=== PATIENT | female | born 1965 | race Caucasian/White ===

== ENCOUNTER 2019-08-21 07:30 | Outpatient (CLI) | payer BC, SELFPAY ==
--- NOTE | ~2019-08-21 | MM_ITS ---
EXAMINATION: MM scrn corrie implant BI w katharine HISTORY: Screening mammogram TECHNIQUE: Craniocaudal and mediolateral oblique 3-D tomosynthesis images with implant displacement a nd synthetic 2-D images were generated. Craniocaudal and mediolateral oblique views of the breasts wi thout implant displacement were obtained using full field digital mammography. CAD analysis was submi tted and interpreted. COMPARISON: 07/05/2018, 07/01/2017, 06/29/2016 BREAST PARENCHYMAL COMPOSITION: There are scattered areas of fibroglandular density. FINDINGS: There is no evidence of suspicious mass, calcification, or architectural distortion to sugg est malignancy in either breast. There has been no suspicious interval change. IMPRESSION: 1. No mammographic evidence of malignancy. 2. Recommend routine screening mammography in one year. BI-RADS Category 1: Negative Reviewed, dictated and finalized at location A. 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
== END 2019-08-21 07:31 | disposition home or self-care (01) ==
LOC: ANHIMG 07:33
PROVIDERS: PCP Internal Medicine; Visit Provider Internal Medicine
DX: Z12.31 Encounter for screening mammogram for malignant neoplasm of breast (principal)
CPT/HCPCS: 77063; 77067

== ENCOUNTER 2020-01-13 04:35 | Outpatient (CLI) | payer BC, SELFPAY ==
[2020-01-13 18:08] LABS: SARS-CoV-2 RNA PCR Negative
== END 2020-01-13 04:36 | disposition home or self-care (01) ==
LOC: ANHCOVIDDT 04:35
PROVIDERS: PCP Internal Medicine; Visit Provider Internal Medicine Gastroenterology
DX: Z01.812 Encounter for preprocedural laboratory examination (principal); Z11.59 Encounter for screening for other viral diseases
CPT/HCPCS: 87635; C9803; U0003

== ENCOUNTER 2020-01-16 01:13 | Day surgery (SDC) | payer BC, SELFPAY ==
[2020-01-10 12:43] VITALS: BMI 25.9
--- NOTE | 2020-01-16 08:41 | WPDANESEPPF ---
Anes - Initial Pre Proc Eval Procedure: Operation Date: 01/16/20 10:00 Proposed Procedures p Esophagogastroduodenoscopy - Phong Moseley MD Date/Time: 01/16/20 08:41 Surgeon: Phong Moseley MD Pre Op Diagnosis: Dysphagia Patient Data Age: 54 Gender: F Height: 5 ft 6 in Weight: 73 kg Allergies Allergy/AdvReac Type Severity Reaction Status Date / Time codeine Allergy Unknown Itching Verified 01/16/20 08:33 Home Medications Medication Instructions Recorded Confirmed Type losartan 100 mg tablet 100 mg PO DAILY #30 tablet 08/07/19 01/16/20 Rx esomeprazole magnesium [Nexium] 20 mg PO DAILY 01/16/20 01/16/20 History Patient hx anesthesia problems: none Family hx anesthesia problems: none PMFSH Past Medical History Medical History History of hepatitis C Hypertension Family History Family History Sibling Family history of diabetes mellitus in first degree relative Mother Diabetes mellitus Father Hypertension Family history of malignant neoplasm Other Cerebrovascular accident Family history of cardiovascular disease Social History Social History Smoking status: Never smoker Alcohol intake: current Anes - Eval Final PreProcedure Day of Procedure 01/16/20 08:41 Patient weight: overweight Heart: regular rate and rhythm Lungs: clear to auscultation Airway: Mallampati scale class II Neurological: alert and oriented Last oral intake: >/= 8 hours ASA classification: II Emergent: no Anesthetic plan: proceed Anesthesia type and monitoring: general GIVS and standard monitoring Informed Consent: The patient's anesthetic plan and its attendant risks and benefits were discussed with the patient/family/POA. Questions were solicited and answers provided to the satisfaction of the patient/family/POA.
[2020-01-16] MEDS: LACTATED RINGERS 1,000 ML 150 ML IV CONT (08:45)
[2020-01-16 08:47] VITALS: BP 142/78; PULSE 80; RESP 18; TEMP 36.1; O2SAT 99
--- NOTE | 2020-01-16 09:11 | WPDGICN ---
Assessment and Plan Assessment and plan (1) Dysphagia: Code(s): R13.10 - Dysphagia, unspecified Status: Acute Assessment and Plan: Patient has symptoms of dysphagia. It is uncertain whether this represents a narrowing, a web or even a globus phenomenon in her throat. Plan is for EGD to assess more thoroughly. Further recommendations will be given after endoscopy. GI Consult Note Consult date/time: 01/16/20 09:11 HPI: Rae Ott is a 54 year old female seen in evaluation at the request of Dr Silva. Patient reports that when she eats meat and bread that this hangs up in the throat area. She states symptoms have occurred over the last several months. Says she often will feel something in his throat. Even when swallowing liquids. She denies any weight loss or bleeding. She currently has been on Nexium 40 mg p.o. daily for some time with no change in symptoms. Additional past history is significant for hypertension. Family history is noncontributory. Review of Systems Review of Systems: All systems reviewed & are unremarkable except as noted in HPI and below PMFSH Past Medical History Medical History History of hepatitis C Hypertension Family History Family History Sibling Family history of diabetes mellitus in first degree relative Mother Diabetes mellitus Father Hypertension Family history of malignant neoplasm Other Cerebrovascular accident Family history of cardiovascular disease Social History Social History Smoking status: Never smoker Alcohol intake: current Meds Home Medications and Allergies Home Medications Medication Instructions Recorded Confirmed Type losartan 100 mg tablet 100 mg PO DAILY #30 tablet 08/07/19 01/16/20 Rx esomeprazole magnesium [Nexium] 20 mg PO DAILY 01/16/20 01/16/20 History Allergies Allergy/AdvReac Type Severity Reaction Status Date / Time codeine Allergy Unknown Itching Verified 01/16/20 08:33 Vital Signs Vital Signs - 24 hr 01/16/20 08:47 Temperature 36.1 C L Pulse Rate 80 Respiratory Rate 18 Blood Pressure 142/78 H Pulse Oximetry 99 Exam Narrative: Exam Narrative: Physical exam reveals patient to be alert. Vital signs stable. HEENT exam unremarkable. Patient is anicteric. Lungs are clear to auscultation and percussion. Heart is without murmur or extra sounds. Abdominal exam bowel sounds are present soft nontender with no hepatosplenomegaly. Digital external rectal exam deferred at this time.
[2020-01-16] MEDS: BENZOCAINE (*SP) 60 ML SPRAY CAN (HURRICAINE) 1 SPRAY MUCOUS MEM (09:51)
[2020-01-16 10:02] VITALS: BP 118/73; PULSE 80; RESP 18; O2SAT 99
[2020-01-16 10:12] VITALS: BP 132/82; PULSE 78; RESP 18; O2SAT 100
[2020-01-16 10:22] VITALS: BP 129/67; PULSE 77; RESP 19; O2SAT 100
== END 2020-01-16 10:32 | disposition home or self-care (01) ==
PROVIDERS: PCP Internal Medicine; Visit Provider Internal Medicine Gastroenterology
PROC: 0DJ08ZZ Inspection of Upper Intestinal Tract, Via Natural or Artificial Opening Endoscopic (ICD-10-PCS; CPT 43235; principal; 2020-01-16 10:00)
DX: Q39.4 Esophageal web (principal); K21.0 Gastro-esophageal reflux disease with esophagitis; I10 Essential (primary) hypertension; Z86.19 Personal history of other infectious and parasitic diseases
CPT/HCPCS: 43450; 43235; J2704; J7120

== ENCOUNTER 2020-09-26 07:39 | Outpatient (CLI) | payer BC, SELFPAY ==
--- NOTE | ~2020-09-26 | MM_ITS ---
EXAMINATION: MM scrn corrie implant BI w katharine HISTORY: Screening mammogram TECHNIQUE: Craniocaudal and mediolateral oblique 3-D tomosynthesis images with implant displacement a nd synthetic 2-D images were generated. Craniocaudal and mediolateral oblique views of the breasts wi thout implant displacement were obtained using full field digital mammography. CAD analysis was submi tted and interpreted. COMPARISON: August 21, 2019, July 05, 2018, July 01, 2017 bilateral implant digital screenin g mammogram examinations BREAST PARENCHYMAL COMPOSITION: There are scattered areas of fibroglandular density. FINDINGS: Status post bilateral augmentation mammoplasty. There is no evidence of suspicious mass, ca lcification, or architectural distortion to suggest malignancy in either breast. There has been no oneill spicious interval change. IMPRESSION: 1. No mammographic evidence of malignancy. 2. Recommend routine screening mammography in one year. BI-RADS Category 1: Negative Reviewed, dictated and finalized at location A. 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
== END 2020-09-26 07:40 | disposition home or self-care (01) ==
LOC: ANHIMG 07:40
PROVIDERS: PCP Internal Medicine; Visit Provider Internal Medicine
DX: Z12.31 Encounter for screening mammogram for malignant neoplasm of breast (principal)
CPT/HCPCS: 77063; 77067

== ENCOUNTER 2021-10-27 08:57 | Outpatient (CLI) | payer BC, SELFPAY ==
--- NOTE | ~2021-10-27 | MM_ITS ---
EXAMINATION: MM scrn corrie implant BI w katharine HISTORY: Screening mammogram TECHNIQUE: Craniocaudal and mediolateral oblique 3-D tomosynthesis images with implant displacement a nd synthetic 2-D images were generated. Craniocaudal and mediolateral oblique views of the breasts wi thout implant displacement were obtained using full field digital mammography. CAD analysis was submi tted and interpreted. COMPARISON: 09/26/2020, 08/21/2019, 07/05/2018 bilateral implant screening mammogram examinations BREAST PARENCHYMAL COMPOSITION: The breasts are heterogeneously dense, which may obscure small masses . FINDINGS: Status post bilateral augmentation mammoplasty. There is no evidence of suspicious mass, ca lcification, or architectural distortion to suggest malignancy in either breast. There has been no oneill spicious interval change. IMPRESSION: 1. No mammographic evidence of malignancy. 2. Recommend routine screening mammography in one year. BI-RADS Category 1: Negative Reviewed, dictated and finalized at location A.
== END 2021-10-27 08:58 | disposition home or self-care (01) ==
LOC: ANHIMG 08:58
PROVIDERS: PCP Internal Medicine; Visit Provider Internal Medicine
DX: Z12.31 Encounter for screening mammogram for malignant neoplasm of breast (principal)
CPT/HCPCS: 77063; 77067

== ENCOUNTER 2022-04-14 08:55 | Outpatient (CLI) | payer BC, SELFPAY ==
--- NOTE | ~2022-04-14 | XR_ITS ---
EXAMINATION: XR barium swallow modified DATE: 04/14/2022 09:38 INDICATION: Cough, unspecified TECHNIQUE: Modified barium esophagram was performed by myself to administered fluoroscopy, in conjun ction with speech pathologist who administered barium in varying consistencies as per speech patholog ist documentation. This was recorded on tape. A single fluoroscopic spot image was recorded. The DAP for this procedure was 1.159 Gycm2. Fluoroscopy exposure time was 1.5 minutes. FINDINGS: Oral stage: Adequate function. Pharyngeal phase: Adequate function. Laryngeal penetration: None. Aspiration: None. Laryngeal sensitivity: Present. IMPRESSION: Normal modified barium swallow. Please refer to speech pathologist findings and specific feeding recommendations. Reviewed, dictated and finalized at location A.
--- NOTE | 2022-04-14 09:49 | REHSTMBS ---
Assessment and note entered by Basilia Rachel UROLOGY SURGEON Modified Barium Swallow Evaluation Feeding Type Recommended Oral Food Consistency Regular, Level 7 Liquid Consistency Thin (0) ST Clinical Summary MODIFIED BARIUM SWALLOW STUDY Patient was seen for a Modified Barium Swallow study at physician request secondary to her complaints of waking up at night choking and coughing and that occasionally when speaking she will randomly start to cough. Patient reported she does not become tickled or choked when consuming liquids or solids. Patient reports a history of GERD requiring medication, allergies, and two EGD' s in the past that have been helpful. This MBS was administered to assess this patient's risk for aspiration and to determine if any compensatory strategies may be beneficial. Results indicate this patient's swallowing skills are within normal limits. No significant findings were observed. It was recommended she continue to follow GERD guidelines. She is referred back to her physician for further assessment of her complaints.
== END 2022-04-14 08:56 | disposition home or self-care (01) ==
PROVIDERS: PCP Internal Medicine; Visit Provider Nurse Practitioner Family
DX: K21.9 Gastro-esophageal reflux disease without esophagitis (principal); R05.9 Cough, unspecified; R09.89 Other specified symptoms and signs involving the circulatory and respiratory systems
CPT/HCPCS: 92611

== ENCOUNTER 2023-05-11 09:01 | Outpatient (CLI) | payer BC, SELFPAY ==
--- NOTE | ~2023-05-11 | MM_ITS ---
EXAMINATION: MM scrn corrie implant BI w katharine HISTORY: Screening mammogram TECHNIQUE: Craniocaudal and mediolateral oblique 3-D tomosynthesis images with implant displacement a nd synthetic 2-D images were generated. Craniocaudal and mediolateral oblique views of the breasts wi thout implant displacement were obtained using full field digital mammography. CAD analysis was submi tted and interpreted. COMPARISON: 10/27/2021, 09/26/2020, 08/21/2019 bilateral implant screening mammogram examinations BREAST PARENCHYMAL COMPOSITION: The breasts are heterogeneously dense, which may obscure small masses . FINDINGS: Status post bilateral augmentation mammoplasty. There is an There is no evidence of suspici ous mass, calcification, or architectural distortion to suggest malignancy in either breast. There rizo s been no suspicious interval change. IMPRESSION: 1. No mammographic evidence of malignancy. 2. Recommend routine screening mammography in one year. BI-RADS Category 1: Negative Reviewed, dictated and finalized at location A.
== END 2023-05-11 09:02 | disposition home or self-care (01) ==
PROVIDERS: PCP Internal Medicine; Visit Provider Obstetrics & Gynecology
DX: Z12.31 Encounter for screening mammogram for malignant neoplasm of breast (principal)
CPT/HCPCS: 77063; 77067

== ENCOUNTER 2024-05-31 09:23 | Outpatient (CLI) | payer BC, SELFPAY ==
[2024-05-31 13:33] LABS: Anion Gap 7 mmol/L (4-12); Blood Urea Nitrogen 16 mg/dL (7-17); Calcium 8.8 mg/dL (8.4-10.2); Carbon Dioxide 26 mmol/L (22-30); Chloride 105 mmol/L (98-107); Estimated Glomerular Filt Rate > 60; Glucose 105 mg/dL (65-110); Potassium 4.8 mmol/L (3.4-5.0); Sodium 138 mmol/L (137-145)
[2024-05-31 13:45] LABS: Basophils Absolute Auto 0.1 K/mm3 (0.0-0.1); Basophils Percent Auto 1.1 % (0.2-1.2); Eosinophils Absolute Auto 0.2 K/mm3 (0-0.3); Eosinophils Percent Auto 3.6 % (0-4.4); Hematocrit 42.7 % (37.0-47.0); Hemoglobin 13.5 g/dL (12.0-15.0); Immature Granulocyte Absolute 0.01 K/mm3 (0.00-0.031); Immature Granulocyte Percent A 0.2 % (0-0.5); Lymphocytes Absolute Auto 2.08 K/mm3 (0.9-3.2); Lymphocytes Percent Auto 39.3 % (18.3-44.2); Mean Corpuscular HGB Conc 31.6 g/dl (32-36); Mean Corpuscular Hemoglobin 29.7 pg (26-34); Mean Corpuscular Volume 94.1 fl (80-100); Mean Platelet Volume 10.4 fl (7.4-10.4); Monocytes Absolute Auto 0.5 K/mm3 (0.1-0.6); Monocytes Percent Auto 8.9 % (2.6-8.5); Neutrophils Absolute Auto 2.5 K/mm3 (1.3-6.7); Neutrophils Percent Auto 46.9 % (45.5-73.1); Platelet Count Result 251 k/mm3 (150-375); Red Blood Count 4.54 M/mm3 (4.2-5.4); Red Cell Distribution Width 14.5 % (11.5-14.5); White Blood Count 5.3 K/mm3 (4.5-10.0)
[2024-05-31 17:48] LABS: Vitamin D 25 Hydroxy 42.3 ng/mL
== END 2024-05-31 09:24 | disposition home or self-care (01) ==
LOC: ANHGOSHLAB 09:24
PROVIDERS: PCP Internal Medicine; Visit Provider Nurse Practitioner
DX: E55.9 Vitamin D deficiency, unspecified (principal); Z13.29 Encounter for screening for other suspected endocrine disorder
CPT/HCPCS: 36415; 80048; 82306; 85025

== ENCOUNTER 2024-06-02 08:36 | Outpatient (CLI) | payer BC, SELFPAY ==
--- NOTE | ~2024-06-02 | MM_ITS ---
EXAMINATION: MM scrn corrie implant BI w katharine HISTORY: Screening mammogram TECHNIQUE: Craniocaudal and mediolateral oblique 3-D tomosynthesis images with implant displacement a nd synthetic 2-D images were generated. Craniocaudal and mediolateral oblique views of the breasts wi thout implant displacement were obtained using full field digital mammography. CAD analysis was submi tted and interpreted. COMPARISON: 05/11/2023, 10/27/2021, 09/26/2020 BREAST PARENCHYMAL COMPOSITION: The breasts are heterogeneously dense, which may obscure small masses . FINDINGS: There is no evidence of suspicious mass, calcification, or architectural distortion to sugg est malignancy in either breast. There has been no suspicious interval change. IMPRESSION: No mammographic evidence of malignancy. Recommend routine screening mammography in one year. BI-RADS Category 1: Negative Reviewed, dictated and finalized at [facility]. GREASER
== END 2024-06-02 08:37 | disposition home or self-care (01) ==
LOC: ANHIMG 08:39
PROVIDERS: PCP Internal Medicine; Visit Provider Nurse Practitioner
DX: Z12.31 Encounter for screening mammogram for malignant neoplasm of breast (principal)
CPT/HCPCS: 77063; 77067

== ENCOUNTER 2024-09-19 00:51 | Day surgery (SDC) | payer OTHER, SELFPAY ==
[2024-09-06 11:48] VITALS: BMI 25.7
[2024-09-19 06:57] VITALS: BP 119/79; PULSE 84; RESP 16; TEMP 36.1; O2SAT 98
[2024-09-19] MEDS: LACTATED RINGERS 1,000 ML 150 ML IV CONT (07:06)
--- NOTE | 2024-09-19 07:21 | WPDANESEPPF ---
Anes - Initial Pre Proc Eval Procedure: Operation Date: 09/19/24 08:00 Proposed Procedures p Screening Colonoscopy - Jonah Scott MD Date/Time: 09/19/24 07:21 Surgeon: Jonah Scott MD Pre Op Diagnosis: Screening for malignant neoplasm of colon Patient Data Age: 59 Gender: F Height: 1.65 m Weight: 74 kg Last Vital Signs Temp 36.1 C L 09/19/24 06:57 Pulse 84 09/19/24 06:57 Resp 16 09/19/24 06:57 BP 119/79 09/19/24 06:57 Pulse Ox 98 09/19/24 06:57 O2 Del Method Room Air 09/19/24 06:57 Allergies Allergy/AdvReac Type Severity Reaction Status Date / Time codeine Allergy Unknown Itching Verified 09/19/24 06:55 Home Medications ?Medication ?Instructions ?Recorded ?Confirmed ?Type losartan 100 mg tablet 100 mg PO DAILY #90 tabs 07/03/24 09/19/24 Rx eszopiclone 2 mg tablet (Lunesta) 2 mg PO QHS #30 tabs 07/31/24 09/19/24 Rx estradiol 1 mg tablet 1 mg PO DAILY #30 tabs 08/03/24 09/19/24 Rx Patient hx anesthesia problems: none Family hx anesthesia problems: none Results Review: All pre-operative results and documents have been reviewed as part of the pre-operative evaluation. [facility] Past Medical History Medical History GERD (gastroesophageal reflux disease) Cough Choking episode occurring at night Hyperglycemia Hepatitis B Anemia Heartburn Bronchitis Pneumonia Chicken pox HTN (hypertension), benign Hypertriglyceridemia Hypercholesterolemia Hypertension History of hepatitis C Surgical History Surgical History S/P partial hysterectomy Previous section History of breast augmentation (~2007) Family History Family History Sibling Family history of diabetes mellitus in first degree relative Mother Diabetes mellitus Pancreas cancer Father Hypertension Family history of malignant neoplasm Sibling Lung cancer Other Cerebrovascular accident Family history of cardiovascular disease Social History Social History Social History: Caffeine-Coffee/tea Smoking status: Never smoker Alcohol intake: current Drinks per week: 2 Alcohol use details: wine-weekends Substance use: never Lack of Transportation: No Lack of Food: Never True Current Housing: I Have Housing Concerned About Future Housing: No Difficulty Paying Gas/Electric Bills: No Difficulty Paying for Meds: No Currently Unemployed: YES Education: High School Diploma/GED Difficulty w/ Childcare or Family Care: No Living arrangements: with family Spiritual care concerns: No Anes - Eval Final PreProcedure Day of Procedure 09/19/24 07:21 Patient weight: overweight Heart: regular rate and rhythm Lungs: clear to auscultation Airway: Mallampati scale class II Neurological: alert and oriented Last oral intake: >/= 8 hours ASA classification: II Emergent: no Anesthetic plan: proceed Anesthesia type and monitoring: general GIVS and standard monitoring Results Review: All pre-operative results and documents have been reviewed as part of the pre-operative evaluation. Informed Consent: The patient's anesthetic plan and its attendant risks and benefits were discussed with the patient/family/POA. Questions were solicited and answers provided to the satisfaction of the patient/family/POA.
--- NOTE | 2024-09-19 07:59 | PM.HPGS ---
History of Present Illness History of Present Illness Consent: Risks, benefits, and alternatives have been discussed and questions answered. Patient agrees to proceed with procedure. Chief complaint: Screening for malignant neoplasm of colon Narrative: Rae Ott is a 59 year old female here for screening colonoscopy, last one 2018 Review of Systems Review of Systems: All systems reviewed & are unremarkable except as noted in HPI and below PMFSH Past Medical History Medical History GERD (gastroesophageal reflux disease) Cough Choking episode occurring at night Hyperglycemia Hepatitis B Anemia Heartburn Bronchitis Pneumonia Chicken pox HTN (hypertension), benign Hypertriglyceridemia Hypercholesterolemia Hypertension History of hepatitis C Surgical History Surgical History S/P partial hysterectomy Previous section History of breast augmentation (~2007) Family History Family History Sibling Family history of diabetes mellitus in first degree relative Mother Diabetes mellitus Pancreas cancer Father Hypertension Family history of malignant neoplasm Sibling Lung cancer Other Cerebrovascular accident Family history of cardiovascular disease Social History Social History Social History: Caffeine-Coffee/tea Smoking status: Never smoker Alcohol intake: current Drinks per week: 2 Alcohol use details: wine-weekends Substance use: never Lack of Transportation: No Lack of Food: Never True Current Housing: I Have Housing Concerned About Future Housing: No Difficulty Paying Gas/Electric Bills: No Difficulty Paying for Meds: No Currently Unemployed: YES Education: High School Diploma/GED Difficulty w/ Childcare or Family Care: No Living arrangements: with family Spiritual care concerns: No Meds Home Medications and Allergies Home Medications ?Medication ?Instructions ?Recorded ?Confirmed ?Type losartan 100 mg tablet 100 mg PO DAILY #90 tabs 07/03/24 09/19/24 Rx eszopiclone 2 mg tablet (Lunesta) 2 mg PO QHS #30 tabs 07/31/24 09/19/24 Rx estradiol 1 mg tablet 1 mg PO DAILY #30 tabs 08/03/24 09/19/24 Rx Allergies Allergy/AdvReac Type Severity Reaction Status Date / Time codeine Allergy Unknown Itching Verified 09/19/24 06:55 Vital Signs Vital Signs - 24 hr 09/19/24 06:57 Temperature 96.9 F L Pulse Rate 84 Respiratory Rate 16 Blood Pressure 119/79 Pulse Oximetry 98 Oxygen Delivery Room Air Exam Const: General: comfortable and no acute distress HENMT: Face/Nose/Sinus: Normal nares present Eyes: General: appearance normal, both eyes and all related structures Neck: Neck: no JVD Resp: Auscultation: clear to auscultation bilaterally Cardio: Rate: regular rate Rhythm: regular rhythm GI: Inspection: non-distended GI Palp: Yes Soft to palpation Skin: General skin exam: normal color Neuro: Speech: normal speech Extrem: General: normal to inspection Psych: Mental Status: mental status grossly normal Assessment and Plan Assessment and plan (1) Screening for colon cancer: Code(s): Z12.11 - Encounter for screening for malignant neoplasm of colon Status: Acute Assessment and Plan: colonoscopy
[2024-09-19 08:15] VITALS: BP 111/59; PULSE 81; RESP 17; O2SAT 98
[2024-09-19 08:25] VITALS: BP 104/67; PULSE 79; RESP 18; O2SAT 100
[2024-09-19 08:35] VITALS: BP 128/65; PULSE 71; RESP 19; O2SAT 100
== END 2024-09-19 08:45 | disposition home or self-care (01) ==
PROVIDERS: PCP Nurse Practitioner; Referring Provider Nurse Practitioner; Visit Provider Internal Medicine Gastroenterology
PROC: 0DJD8ZZ Inspection of Lower Intestinal Tract, Via Natural or Artificial Opening Endoscopic (ICD-10-PCS; CPT 45378; principal; 2024-09-19 08:00)
DX: Z12.11 Encounter for screening for malignant neoplasm of colon (principal); K64.8 Other hemorrhoids; K62.89 Other specified diseases of anus and rectum; K21.9 Gastro-esophageal reflux disease without esophagitis; I10 Essential (primary) hypertension; E78.1 Pure hyperglyceridemia; E78.00 Pure hypercholesterolemia, unspecified; R73.9 Hyperglycemia, unspecified; D64.9 Anemia, unspecified; Z90.49 Acquired absence of other specified parts of digestive tract; Z80.1 Family history of malignant neoplasm of trachea, bronchus and lung; Z80.0 Family history of malignant neoplasm of digestive organs; Z82.49 Family history of ischemic heart disease and other diseases of the circulatory system
CPT/HCPCS: 45378; J2704; J7120